=== PATIENT | male | born 1975 | race African-American/Black ===

== ENCOUNTER 2024-07-13 16:05 | Emergency (ER) | payer OTHER ==
[2024-07-13 16:13] VITALS: BP 186/95; PULSE 94; RESP 20; TEMP 98.1; BMI 36.5
== END 2024-07-13 16:31 | disposition home or self-care (01) ==
LOC: FER 16:05
DX: S61.411A Laceration without foreign body of right hand, initial encounter (principal); R07.81 Pleurodynia; M25.512 Pain in left shoulder; M25.572 Pain in left ankle and joints of left foot; W17.89XA Other fall from one level to another, initial encounter; Y99.0 Civilian activity done for income or pay
CPT/HCPCS: 99282-25